=== PATIENT | female | born 1990 | race Caucasian/White ===

== ENCOUNTER → 2018-03-30 10:13 | Outpatient (CLI) | payer BC, SELFPAY ==
--- NOTE | 2018-03-30 10:13 | DT_ITS ---
This patient was seen during an EMR downtime March 23, 2018 - March 30, 2018. This patient may have a combination of paper and electronic documentation or all paper documentation. All documentation is viewable within the e-chart portion of [facility] [employer] for each patient visit.
[2018-03-30 10:37] LABS: Hemoglobin 13.8 g/dl (12.0-15.0); Mean Corp Hgb Conc 33.7 g/gl (32-36); Mean Corpuscular Hgb 33.4 pg (27.0-32.0); Mean Corpuscular Volume 99.3 fL (81-99); Mean Platelet Vol. 10.2 fl (6.2-12.0); Platelet Count 223 K/mm3 (150-450); RBC Distribution Width CV 11.8 % (11.6-14.6); RBC Distribution Width SD 43.1 fl (35.1-43.9); Red Blood Count 4.13 M/mm3 (4.2-5.4); White Blood Count 7.8 K/mm3 (4.4-11.0)
[2018-03-30 10:39] LABS: Scan Indicated on CBC? Y/N NO
[2018-03-30 11:19] LABS: Vitamin B12 238 pg/mL (211-911); Vitamin D,25 Hydroxy 27.7 ng/mL (29.95-100.01)
== END ==
PROVIDERS: Visit Provider Obstetrics & Gynecology
DX: R53.83 Other fatigue (principal); Z12.4 Encounter for screening for malignant neoplasm of cervix
CPT/HCPCS: 36415; 82306; 82607; 85027; 88175; G0145

== ENCOUNTER → 2018-10-06 16:22 | Outpatient (CLI) | payer BC, SELFPAY ==
[2018-10-06 21:46] LABS: Chlamydia Trachomatis by PCR Negative (Negative); Neisserai gonorrhoeae by PCR Negative (Negative); Probe Check PASS; Sample Adequacy Control PASS; Specimen Processing Control PASS
--- OUTSIDE RECORDS SUMMARY | 2019-01-08 05:09 | XMS RPT_ITS ---
:1990 Author Organization [facility] Care Team Providers Name Role Phone Elvi Noriega Attending Unavailable Elvi Noriega Attending Unavailable PROBLEMS PROBLEMS DATE TYPE CONDITION / CODE ATTENDING STATUS SOURCE 10/06/2018 Unknown Z11.3 - Encounter Elvi Noriega for screening for Community infections with a Hospital predominantly Repository sexual mode of transmission / Z11.3(ICD-10) 04/16/2018 Unknown R53.83 - Other Elvi Noriega fatigue / Community R53.83(ICD-10) Hospital Repository PROCEDURES PROCEDURES No Procedure Records FoundRESULTS RESULTS CT/NG [facility] BY PCR Collected: 10/06/2018 Status: F Source: [place] 4:[address] [facility] REPOSITORY TYPE CODE TESTS RESULT OUT OF RANGE REFERENCE UNITS LAB L8200.2100 Negative Normal Chlam Negative Trac PCR LAB L8200.2200 Negative Normal NG by Negative PCR Performed By: #### L8200.1999 #### [facility] [address] [place], [place], [address] DOWNTIME REPORT Observed: 04/09/2018 Status: F Source: [place] 2:[address] [facility] REPOSITORY [facility] Medical Records Department [address] [place] [address] Downtime Report MR#: [id number] Acct: [id number] Name: BRYANNA BEVRELY Rep #: [id number] : 1990 28 From: Meño Bergman PCP: Status: REG CLI This patient was seen during an EMR downtime March 23, 2018 - March 30, 2018. This patient may have a combination of paper and electronic documentation or all paper documentation. All documentation is viewable within the e-chart portion of [employer] for each patient visit. CBC-COMPLETE BLOOD CNT Collected: 03/30/2018 Status: F Source: [place] NO DIFF 10:[address] [facility] REPOSITORY TYPE CODE TESTS RESULT OUT OF RANGE REFERENCE UNITS LAB L100.1000 4.4-11.0 K/mm3 Normal WBC 7.8 LAB L100.1200 4.2-5.4 M/mm3 Low RBC 4.13 LAB L100.1300 12.0-15.0 g/dl Normal HGB 13.8 LAB L100.1400 37-47 % Normal HCT 41.0 LAB L100.1500 81-99 fL High MCV 99.3 LAB L100.1600 27.0-32.0 pg High MCH 33.4 LAB L100.1700 32-36 g/gl Normal MCHC 33.7 LAB L100.1810 11.6-14.6 % Normal RDW CV 11.8 LAB L100.1820 35.1-43.9 fl Normal RDW SD 43.1 LAB L100.1900 150-450 K/mm3 Normal PLT 223 LAB L100.2000 6.2-12.0 fl Normal MPV 10.2 Performed By: #### L100.0500 #### [facility] [address] [place], [address] VITAMIN B12 Collected: 03/30/2018 Status: F Source: [place] 10:[address] [facility] REPOSITORY TYPE CODE TESTS RESULT OUT OF RANGE REFERENCE UNITS LAB L503.0105 211-911 pg/mL Normal Vitamin B12 238 Performed By: #### L503.0105, L506.1000 #### [facility] [address] [place], [address] VITAMIN D,25 HYDROXY Collected: 03/30/2018 Status: F Source: [place] 10:[address] [facility] REPOSITORY TYPE CODE TESTS RESULT OUT OF REFERENCE UNITS RANGE LAB L506.1000 29.95-100.01 ng/mL Low Vitamin D 27.7 25-OH Result Comment: Vitamin D 25(OH) Status Range Deficiency <20 ng/mL (50nmol/L) Insuffciency 20 - 30 ng/mL (50 - 75 nmol/L) Sufficiency 30 - 100 ng/mL (75 - 250 nmol/L) Toxicity >100 ng/mL (>250 nmol/L) Performed By: #### L503.0105, L506.1000 #### [facility] [address] [place], [address] PAP I-G W/RFX HRHPV Collected: 03/30/2018 Status: F Source: [place] 9:[address] [facility] REPOSITORY Order Comment: CYTOLOGY INFORMATION: - CLINICAL INFORMATION: - DATE LMP/MENOPAUSE: 03/11/18 LMP - COLLECTION VIAL: Thin Prep Vial - METHODS SPECIALIST SOURCE: CERVICAL/ENDOCERVICAL - COLLECTION TECHNIQUE: BRUSH/SPATULA TYPE CODE TESTS RESULT OUT OF RANGE REFERENCE UNITS LAB L7400.0800 Normal DIAGN Result Comment: NEGATIVE FOR INTRAEPITHELIAL LESION AND MALIGNANCY LAB L7400.0900 Normal ADEQ Result Comment: Satisfactory for evaluation. Endocervical and/or squamous metaplastic cells (endocervical component) are present. LAB L7400.1400 Normal PERFORM Result Comment: Performed by Yasmin eLe Mine Motor Operator (ASCP) LAB L7400.2550 Normal COMMENT Result Comment: The pap smear is a screening test designated to aid in the detection of pre-malignant and malignant conditions of the uterine cervix. It is not a diagnostic procedure and should not be used as the sole means of detecting cervical cancer. Both false-positive and false-negative reports do occur. LAB L7400.2575 Normal TEST METHOD Result Comment: This liquid based ThinPrep(R) pap test was screened with the use of an image guided system. Performed By: #### L7400.0350 #### [facility] (refer to report for specific site) refer to report for address and phone number ALLERGIES ALLERGIES No Allergies Records FoundENCOUNTERS ENCOUNTERS ADMIT/DISCHARGE ACCOUNT ADMITTING ENCOUNTER LOCATION SOURCE NUMBER [facility] 10/06/2018 [id number] Ambulatory [place] [facility] ing:[facility] Repository 03/30/2018 [id number] Ambulatory [place] [facility] ing:WOBLAB Repository PAYERS PAYERS ENCOUNTER GUARANTOR PAYER SUBSCRIBER SOURCE 10/06/2018 Bryanna Felix Primary Bryanna Díaz [id number] [place] Insurance:ANTHEMPolic CaseyDOB: [facility], y [facility]: [id number] [address]Dro: [id number] Repository mohsen Date:[id number] () [address], [place] [address]FP: 10/06/2018 Secondary NOT GIVENUNK [place] Insurance:SELF PAY [facility] Number: Effective Repository Date:2018-10-06 03/30/2018 Bryanna Elvira Primary Bryanna Díaz [id number] [place] Insurance:ANTHEMPolic CaseyDOB: [facility], y Number: [id number] [address]Yaz: [id number] Repository mohsen Date:[id number] ) [address], [place] [address]DJ: 03/30/2018 Secondary NOT GIVENUNK [place] Insurance:SELF PAY [facility] Number: Effective Repository Date:2018-03-30
== END ==
PROVIDERS: Visit Provider Obstetrics & Gynecology
DX: Z11.3 Encounter for screening for infections with a predominantly sexual mode of transmission (principal)
CPT/HCPCS: 87491; 87591

== ENCOUNTER 2018-12-26 09:56 | Emergency (ER) | payer BC, SELFPAY ==
[2018-12-26 09:57] VITALS: BP 149/94; PULSE 100; RESP 20; TEMP 36.6; O2SAT 100; BMI 35.2
--- NOTE | 2018-12-26 10:03 | NURSING ---
no old ekgs
[2018-12-26 10:16] VITALS: BP 144/93; PULSE 104; RESP 20; O2SAT 98
--- NOTE | 2018-12-26 10:22 | CT_ITS ---
STUDY: CTA CHEST REASON FOR EXAM: Female, 28 years old. Chest pain RADIATION DOSAGE (If Supplied By Facility): CTDIvol = ( 10.29 ) mGy, DLP = ( 461.39 ) mGycm TECHNIQUE: The examination was performed with the intravenous administration of 100 mL Isovue-370. Post-processing of the angiographic images was performed, with multiplanar reformation and 3D reconstruction. Individualized dose optimization techniques were used for this CT. COMPARISON: None. FINDINGS: Normal enhancement of the main pulmonary artery and right and left pulmonary arteries. Normal enhancement of the bilateral peripheral pulmonary arteries. There is no demonstrated pulmonary embolism. Normal thoracic aorta and visualized great vessels. There is no demonstrated aortic dissection. Normal heart and pericardium. Normal mediastinum. Normal hilar regions. Normal visualized trachea and bronchi. The lungs are well expanded. There are patchy groundglass opacities involving multiple pulmonary lobes predominantly the upper lobes. No dense airspace consolidation or cavitating process. Normal pleura. Normal chest wall structures. Normal osseous structures. Normal visualized upper abdomen. CT/CTA Chest W/WO Contrast IMPRESSION: 1. No central or segmental pulmonary embolism. 2. Patchy groundglass opacities and multiple pulmonary lobes most typical of pneumonitis/infection or edema. Electronically Signed: Angel Reynoso MD at 12:02 EST , Service support ,
--- NOTE | 2018-12-26 10:22 | EKG12_ITS ---
Test Reason : CP Blood Pressure : / mmHG Vent. Rate : 093 BPM Atrial Rate : 093 BPM P-R Int : 138 ms QRS Dur : 088 ms QT Int : 346 ms P-R-T Axes : 024 026 035 degrees QTc Int : 430 ms Normal sinus rhythm Nonspecific T wave abnormality Abnormal ECG Confirmed by MARITZA BENNETT, FUNMI ([id number]), senior editor LACEY PADILLA ([id number]) on 12/29/2018 9:59:14 AM Referred By: SINCERE Confirmed By:FUNMI SALAS MD
--- NOTE | 2018-12-26 10:31 | ED.VISSUMM ---
- ER Visit Summary Date of Service: 12/26/18 Chief Complaint: Left-sided chest pain History of Present Illness: The patient is a 28 F sent from urgent care 2-day history of left-sided chest pain. States mild white productive cough for 2 days. No fevers. Pain with deep breaths. Similar symptoms with pneumonia a year ago. She reports going to urgent care however had a negative chest x-ray. She was sent here due to family history of factor V Leiden and PEs. She states she has been worked up for clotting disorders and it has been negative. No recent travel, surgeries, or immobilizations. No family history of WI at a young age. Tobacco history. She did receive Depo shot for 8 years up until 5 months ago, she states she stopped secondary to find out there could be a problem with bone density. No daily medications. Physical Examination: General: Alert and oriented ?3, no acute distress HEENT: Normocephalic, atraumatic. Moist mucosa membranes Neck: supple, nontender. Cardiovascular: Regular rate and rhythm, no murmurs Respiratory: Normal breath sounds, symmetric, no distress Abdomen: Soft, nontender, nondistended Extremities: Nontender, no edema, pulses intact ?4 Neuro: no focal neurological deficits. Test Results: EKG sinus rate of [address] changes. There is T wave inversion V2, flattening in V3 to V5. White count 8.5 he will 13.5 creatinine 0.69. Troponin negative. CTA chest no PE, patchy infiltrates upper lobe bilaterally. Emergency Department Course and Treatment: Patient vitals stable nontoxic. EKG did note flattening T waves lateral leads. Troponin was negative. Reported negative chest x-ray. Family history of clots, she does have some productive sputum CTA chest obtained negative for PE did note however infiltrates noted upper lobes. She is not hypoxic or tachypneic. She will be covered for community acquired pneumonia with doxycycline. Signs and symptoms discussed return otherwise follow-up with PCP. Tobacco cessation discussed. All questions were answered. Treatment Plan: [] Disposition: Discharge Impression: Community-acquired pneumonia This note was generated with [employer] software. It may contain incorrect words, spelling, and punctuation that were not noted in review of the chart prior to signing ED Disposition - Plan for ED Patient: Disposition: Home or Assisted Living Diagnosis: Community acquired pneumonia Instructions: ED Pneumonia Adult Prescriptions: Doxycycline Hyclate 100 mg PO BID #19 tablet Additional Instructions: upper lobe pneumonia on CT. Take antibiotics as prescribed. Follow up with your doctor.
[2018-12-26 10:33] VITALS: O2SAT 100
--- NOTE | 2018-12-26 10:34 | ED.DCSUM_ITS ---
- ER Visit Summary Date of Service: 12/26/18 Chief Complaint: Left-sided chest pain History of Present Illness: The patient is a 28 F sent from urgent care 2-day history of left-sided chest pain. States mild white productive cough for 2 days. No fevers. Pain with deep breaths. Similar symptoms with pneumonia a year ago. She reports going to urgent care however had a negative chest x-ray. She was sent here due to family history of factor V Leiden and PEs. She states she has been worked up for clotting disorders and it has been negative. No recent travel, surgeries, or immobilizations. No family history of MS at a young age. Tobacco history. She did receive Depo shot for 8 years up until 5 months ago, she states she stopped secondary to find out there could be a problem with bone density. No daily medications. Physical Examination: General: Alert and oriented ?3, no acute distress HEENT: Normocephalic, atraumatic. Moist mucosa membranes Neck: supple, nontender. Cardiovascular: Regular rate and rhythm, no murmurs Respiratory: Normal breath sounds, symmetric, no distress Abdomen: Soft, nontender, nondistended Extremities: Nontender, no edema, pulses intact ?4 Neuro: no focal neurological deficits. Test Results: EKG sinus rate of [address] changes. There is T wave inversion V2, flattening in V3 to V5. White count 8.5 he will 13.5 creatinine 0.69. Troponin negative. CTA chest no PE, patchy infiltrates upper lobe bilaterally. Emergency Department Course and Treatment: Patient vitals stable nontoxic. EKG did note flattening T waves lateral leads. Troponin was negative. Reported negative chest x-ray. Family history of clots, she does have some productive sputum CTA chest obtained negative for PE did note however infiltrates noted upper lobes. She is not hypoxic or tachypneic. She will be covered for community acquired pneumonia with doxycycline. Signs and symptoms discussed return otherwise follow-up with PCP. Tobacco cessation discussed. All questions were answered. Treatment Plan: [] Disposition: Discharge Impression: Community-acquired pneumonia This note was generated with [employer] software. It may contain incorrect words, spelling, and punctuation that were not noted in review of the chart prior to signing ED Disposition - Plan for ED Patient: Disposition: Home or Assisted Living Diagnosis: Community acquired pneumonia Instructions: ED Pneumonia Adult Prescriptions: Doxycycline Hyclate 100 mg PO BID #19 tablet Additional Instructions: upper lobe pneumonia on CT. Take antibiotics as prescribed. Follow up with your doctor.
[2018-12-26] MEDS: 0.9% Normal Saline 1,000 ML 150 ML IV (10:45)
--- NOTE | 2018-12-26 10:53 | NURSING ---
PER LAB, NEED PT, PTT AND CBCD REDRAWN. CLOTTED AND HEMOIZED
[2018-12-26 11:05] LABS: Absolute Lymphocyte Count 1.44 X10^3/ul (0.83-4.51); Absolute Neutrophil Count 5.9 X10^3/uL (2.0-7.7); Basophil# 0.01 X10^3/uL; Basophil% 0.1 % (0-1); Eosinophil# 0.11 X10^3/uL; Eosinophils% 1.3 % (0-5); Hematocrit 40.4 % (37-47); Hemoglobin 13.5 g/dl (12.0-15.0); Lymphocyte # 1.44 X10^3/ul (4.0); Mean Corp Hgb Conc 33.4 g/gl (32-36); Mean Corpuscular Hgb 34.4 pg (27.0-32.0); Mean Corpuscular Volume 103.1 fL (81-99); Monocyte% 11.8 % (0-10); Neutrophil # 5.87 X10^3/uL (2.7-7.7); Neutrophil % 69.4 % (47-70); Platelet Count 214 K/mm3 (150-450); RBC Distribution Width CV 11.4 % (11.6-14.6); RBC Distribution Width SD 42.2 fl (35.1-43.9); Red Blood Count 3.92 M/mm3 (4.2-5.4); White Blood Count 8.5 K/mm3 (4.4-11.0)
[2018-12-26 11:06] LABS: Anion Gap 8 (5-15); BUN 7 mg/dL (7-18); BUN/Creat Ratio 10.1 RATIO (10-20); Calcium,Total 8.6 mg/dL (8.5-10.1); Chloride 107 mmol/L (98-107); Creatinine, Serum 0.69 mg/dL (0.55-1.02); EST Glomerular Filtration Rate 106 mL/min (>60); Est Glom Filt Rate - Afr Amer 129 mL/min (>60); Estimated Creatinine Clearance 131.26 ml/min; Glucose 103 mg/dL (74-106); Potassium 4.5 mmol/L (3.5-5.1); Sodium Level 137 mmol/L (136-145)
[2018-12-26 11:06] LABS: POSITIVE COUNT NO; POSITIVE DIFFERENTIAL NO; POSITIVE MORPHOLOGY NO
[2018-12-26 11:10] LABS: Prothrombin Time (Protime)PT. 12.6 SECONDS (11.7-14.9)
[2018-12-26 11:11] LABS: Partial Thromboplast Time 24.4 Seconds (24.1-36.2)
[2018-12-26 13:27] VITALS: BP 137/89; PULSE 76; RESP 14; RESP 17; O2SAT 98
[2018-12-26] MEDS: Doxycycline 100 MG CAPSULE PO (13:27)
== END 2018-12-26 13:58 | disposition home or self-care (01) ==
PROVIDERS: Emergency Provider Emergency Medicine
DX: J18.9 Pneumonia, unspecified organism (principal); Z72.0 Tobacco use; Z83.2 Family history of diseases of the blood and blood-forming organs and certain disorders involving the immune mechanism
CPT/HCPCS: 71275; 80048; 84484; 85025; 85610; 85730; 93005; 96360; 96361; 99285; J7030; Q9967; A4216